=== PATIENT | male | born 1970 | race African-American/Black ===

== ENCOUNTER 2018-06-19 10:58 | Inpatient (IN) | payer MEDICARE ==
[2018-06-19 13:28] VITALS: BMI 26.2
--- NOTE | 2018-06-19 13:37 | HP ---
COWS - Scale Resting Pulse: 2= VT 101-120 Sweatin= No chills or Flushing Restless Observation: 0= Sits Still Pupil Size: 1= Pupils >than Normal Bone or Joint Aches: 0= None Runny Nose/ Eye Tearin= Constantly Teary/Runny GI Upset > 30mins: 1= Stomach Cramp Tremor Observation: 0= None Yawning Observation: 0= None Anxiety or Irritability: 2=Irritable/Anxious Goose Flesh Skin: 0=Smooth Skin COWS Score: 10 CIWA Score - Admission Criteria OASAS Guidelines: Admission for Medically Managed Detox: Requires at least one of the followin. CIWA greater than 12 2. Seizures within the past 24 hours 3. Delirium tremens within the past 24 hours 4. Hallucinations within the past 24 hours 5. Acute intervention needed for co occurring medical disorder 6. Acute intervention needed for co occurring psychiatric disorder 7. Severe withdrawal that cannot be handled at a lower level of care (continued vomiting, continued diarrhea, abnormal vital signs) requiring intravenous medication and/or fluids 8. Admission ROS [facility] - HPI Allergies/Adverse Reactions: Allergies Allergy/AdvReac Type Severity Reaction Status Date / Time No Known Allergies Allergy Verified 10/23/15 20:37 History of Present Illness: pt here requesting detox from heroin use , reports 3 bundles / day , first age of use 3 1/2 years ago , denies IVDU , latet use this morning 3 bags , denies OD . PMHX : DM II since 1 year ago , w/ hyperglycemia, latest hospitalization 1 week ago [facility] reports FS > 600, went to [facility] Friday PSHX : denies Psych :denies , denies current SI / HI meds - see list Exam Limitations: Clinical Condition - Ebola screening Have you traveled outside of the country in the last 21 days: No Have you had contact with anyone from an Ebola affected area: No - Review of Systems Constitutional: See HPI EENT: reports: See HPI Respiratory: reports: No Symptoms reported Cardiac: reports: No Symptoms Reported GI: reports: See HPI : reports: No Symptoms Reported Musculoskeletal: reports: Muscle Pain Integumentary: reports: No Symptoms Reported Neuro: reports: No Symptoms reported Endocrine: reports: See HPI Psychiatric: reports: Orientated x3 Patient History - Patient Medical History Hx Anemia: No Hx Asthma: No Hx Chronic Obstructive Pulmonary Disease (COPD): No Hx Cancer: No Hx Cardiac Disorders: No Hx Congestive Heart Failure: No Hx Hypertension: No Hx Hypercholesterolemia: No Hx Pacemaker: No HX Cerebrovascular Accident: No Hx Seizures: No Hx Dementia: No Hx Diabetes: No Hx Gastrointestinal Disorders: No Hx Liver Disease: No Hx Genitourinary Disorders: No Hx Sexually Transmitted Disorders: No Hx Renal Disease (ESRD): No Hx Thyroid Disease: No Hx Human Immunodeficiency Virus (HIV): No Hx Hepatitis C: No Hx Depression: No Hx Suicide Attempt: No Hx Bipolar Disorder: No Hx Schizophrenia: No - Patient Surgical History Past Surgical History: No Hx Neurologic Surgery: No Hx Cataract Extraction: No Hx Cardiac Surgery: No Hx Lung Surgery: No Hx Breast Surgery: No Hx Breast Biopsy: No Hx Abdominal Surgery: No Hx Appendectomy: No Hx Cholecystectomy: No Hx Genitourinary Surgery: No Hx Section: No Hx Orthopedic Surgery: No Anesthesia Reaction: No - PPD History Date: 10/25/15 - Smoking Cessation Smoking history: Current every day smoker Have you smoked in the past 12 months: Yes Aproximately how many cigarettes per day: 20 Cigars Per Day: 0 Hx Chewing Tobacco Use: No Initiated information on smoking cessation: No - Substances abused Heroin Other (specify): sniff Frequency: Daily Amount used: 2 BUNDLES Age of first use: 44 Date of last use: 06/19/18 Family Disease History - Family Disease History Family Disease History: Diabetes: Father (ESRD ), Heart Disease: Mother , Other: Father Admission Physical Exam BHS - Vital Signs Vital Signs: Vital Signs - 24 hr 06/19/18 06/19/18 13:04 13:26 Temperature 97.5 F L 97.5 F L Pulse Rate 104 H 104 H Respiratory 18 18 Rate Blood Pressure 133/77 133/77 - Physical General Appearance: Yes: Mild Distress HEENTM: Yes: EOMI, Hearing grossly Normal, Normocephalic, Normal Voice Respiratory: Yes: Chest Non-Tender, Lungs Clear, Normal Breath Sounds Neck: Yes: No masses,lesions,Nodules, Trachea in good position Cardiology: Yes: Regular Rhythm, Regular Rate, S1, S2, Tachycardia Abdominal: Yes: Non Tender, Soft Back: Yes: Normal Inspection Musculoskeletal: Yes: full range of Motion Extremities: Yes: Non-Tender Neurological: Yes: Fully Oriented, Alert, Motor Strength 5/5 Integumentary: Yes: Dry, Warm - Diagnostic (1) Nicotine dependence Current Visit: Yes Status: Chronic Qualifiers: Nicotine product type: cigarettes Substance use status: uncomplicated Qualified Code(s): F17.210 - Nicotine dependence, cigarettes, uncomplicated (2) Opioid dependence with withdrawal Current Visit: Yes Status: Acute Breathalyzer - Breathalyzer Breathalyzer: 0 Urine Drug Screen - Test Device Lot number: [id number] Expiration date: 02/14/20 - Control Is test valid?: Yes - Results Drug screen NEGATIVE: No Urine drug screen results: MOP-Opiates Inpatient Rehab Admission - Rehab Decision to Admit Inpatient rehab admission?: No
[2018-06-19] MEDS ORDERED: ACETAMINOPHEN 325 MG TABLET (FP) PO PRN ×2 (13:50)
[2018-06-19] MEDS ORDERED: NICOTINE POLACRILEX 2 MG GUM BUC PRN (13:50)
[2018-06-19] MEDS ORDERED: MAGNESIUM CITRATE 300 ML BOTTLE PO PRN (13:50)
[2018-06-19] MEDS ORDERED: BISMUTH SUBSALICYLATE 262 MG/15 ML BTL PO PRN (13:50)
[2018-06-19] MEDS ORDERED: MAG HYDROX/AL HYDROX/SIMETH 30 ML UNIT-DOSE CUP PO PRN (13:50)
[2018-06-19] MEDS ORDERED: IBUPROFEN 400 MG TABLET (FP) PO PRN (13:50)
[2018-06-19] MEDS ORDERED: MAGNESIUM HYDROX 2400MG/30ML ORAL SUSPENSION 30 ML CUP PO PRN (13:50)
[2018-06-19] MEDS ORDERED: MENTHOL/PHENOL 1 EACH UD MM PRN (13:50)
[2018-06-19] MEDS ORDERED: hydrOXYzine PAMOATE 25 MG CAPSULE (FP) PO PRN (13:50)
[2018-06-19] MEDS ORDERED: MELATONIN 5 MG TABLETS PO PRN (13:50)
[2018-06-19] MEDS ORDERED: cloNIDine HCL 0.1 MG TABLET PO PRN (13:50)
[2018-06-19] MEDS: metFORMIN HCL 500 MG TABLET (FP) PO SCH (15:24)
[2018-06-19] MEDS: INSULIN SLIDING SCALE (NOVOLOG) 1 VIAL SQ SCH ×2 (15:34→22:41)
[2018-06-19 16:56] LABS: HEMATOCRIT 41.5 % (35.4-49); HEMOGLOBIN 13.1 GM/dL (11.7-16.9); MCH 28.1 pg (25.7-33.7); MCHC 31.5 g/dl (32.0-35.9); MEAN PLT VOLUME 11.7 fl (7.5-11.1); PLATELET COUNT 201 K/MM3 (134-434); RBC 4.66 M/mm3 (4.00-5.60); RDW 13.1 % (11.9-15.9); WHITE BLOOD COUNT 7.6 K/mm3 (4.0-10.0)
[2018-06-19 17:09] LABS: ALBUMIN 3.9 g/dl (3.4-5.0); ALK PHOS 159 U/L (45-117); ANION GAP 9 MMOL/L (8-16); BILIRUBIN,TOTAL 0.6 mg/dL (0.2-1); BLOOD UREA NITROGEN 20 mg/dL (7-18); CALCIUM 9.9 mg/dL (8.5-10.1); CHLORIDE 94 mmol/L (98-107); CO2 27 mmol/L (21-32); CREATININE 1.4 mg/dL (0.55-1.3); POTASSIUM 5.2 mmol/L (3.5-5.1); SGOT/AST 10 U/L (15-37); SGPT/ALT 25 U/L (13-61); SODIUM 130 mmol/L (136-145)
[2018-06-19 17:14] LABS: GLUCOSE,RANDOM 547 mg/dL (74-106)
[2018-06-19] MEDS ORDERED: Insulin (LOG) Aspart 100 UNITS/ML VIAL SQ ONE (17:45)
[2018-06-19] MEDS ORDERED: THIAMINE HCL 100 MG TABLET (FP) PO SCH (22:00)
[2018-06-19] MEDS: AMOXICILLIN 500 MG CAPSULE (FP) PO SCH (22:42)
[2018-06-19] MEDS ORDERED: METHADONE HCL 10 MG TABLET (FOR DETOX USE ONLY) PO ONE (23:00)
[2018-06-20] MEDS: metFORMIN HCL 500 MG TABLET (FP) PO SCH (07:19)
[2018-06-20] MEDS: INSULIN SLIDING SCALE (NOVOLOG) 1 VIAL SQ SCH ×3 (08:20→17:00)
[2018-06-20] MEDS ORDERED: METHADONE HCL 10 MG TABLET (FOR DETOX USE ONLY) PO ONE (10:00)
[2018-06-20] MEDS ORDERED: PRENATAL VITAMINS W/ FOLIC ACID TABLET (FP) PO SCH (10:00)
--- NOTE | 2018-06-20 11:38 | EKG ---
Test Reason : Blood Pressure : / mmHG Vent. Rate : 095 BPM Atrial Rate : 095 BPM P-R Int : 162 ms QRS Dur : 074 ms QT Int : 358 ms P-R-T Axes : 045 -06 007 degrees QTc Int : 449 ms NORMAL SINUS RHYTHM POSSIBLE LEFT ATRIAL ENLARGEMENT LEFT VENTRICULAR HYPERTROPHY CANNOT RULE OUT SEPTAL INFARCT , AGE UNDETERMINED ABNORMAL ECG NO PREVIOUS ECGS AVAILABLE Confirmed by GOLDY RUVALCABA MD ([id number]) on 06/20/2018 11:37:35 AM Referred By: Shiela ELDRIDGE Confirmed By:GOLDY RUVALCABA MD
[2018-06-20] MEDS: AMOXICILLIN 500 MG CAPSULE (FP) PO SCH (12:00)
[2018-06-20 13:34] VITALS: TEMP 98.2
--- NOTE | 2018-06-20 15:44 | PN ---
BHS COWS - Scale Resting Pulse: 1= IN 81-100 Sweatin= Chills/Flushing Restless Observation: 0= Sits Still Pupil Size: 0= Normal to Room Light Bone or Joint Aches: 0= None Runny Nose/ Eye Tearin= Runny Nose/Eyes GI Upset > 30mins: 1= Stomach Cramp Tremor Observation of Outstretched Hands: 0= None Yawning Observation: 1= 1-2x During Session Anxiety or Irritability: 2=Irritable/Anxious Goose Flesh Skin: 3=Piloerection COWS Score: 11 BHS Progress Note (SOAP) Subjective: Fatigue, Stomach Cramping, Runny Nose, Anxious. Objective: PATIENT A & O X 3, OBSERVED AMBULATING ON UNIT. IN NO ACUTE DISTRESS. 06/20/18 15:47 Vital Signs Temperature 98.2 F 06/20/18 13:33 Pulse Rate 88 06/20/18 13:33 Respiratory Rate 18 06/20/18 13:33 Blood Pressure 115/77 06/20/18 13:33 O2 Sat by Pulse Oximetry (%) Laboratory Tests 06/19/18 06/19/18 06/19/18 13:10 13:10 13:10 WBC 7.6 RBC 4.66 Hgb 13.1 Hct 41.5 MCV 89.0 MCH 28.1 MCHC 31.5 L RDW 13.1 Plt Count 201 MPV 11.7 H D Sodium 130 L Potassium 5.2 H Chloride 94 L Carbon Dioxide 27 Anion Gap 9 BUN 20 H Creatinine 1.4 H Creat Clearance w eGFR 54.56 POC Glucometer Random Glucose 547 H* Calcium 9.9 Total Bilirubin 0.6 AST 10 L ALT 25 Alkaline Phosphatase 159 H Total Protein 8.0 Albumin 3.9 RPR Titer HIV 1&2 Antibody Screen Negative HIV P24 Antigen Negative 06/19/18 06/19/18 06/19/18 13:10 13:49 15:01 WBC RBC Hgb Hct MCV MCH MCHC RDW Plt Count MPV Sodium Potassium Chloride Carbon Dioxide Anion Gap BUN Creatinine Creat Clearance w eGFR POC Glucometer 589 534 Random Glucose Calcium Total Bilirubin AST ALT Alkaline Phosphatase Total Protein Albumin RPR Titer Nonreactive HIV 1&2 Antibody Screen HIV P24 Antigen 06/19/18 06/19/18 06/19/18 16:55 19:09 21:41 WBC RBC Hgb Hct MCV MCH MCHC RDW Plt Count MPV Sodium Potassium Chloride Carbon Dioxide Anion Gap BUN Creatinine Creat Clearance w eGFR POC Glucometer 599 414 389 Random Glucose Calcium Total Bilirubin AST ALT Alkaline Phosphatase Total Protein Albumin RPR Titer HIV 1&2 Antibody Screen HIV P24 Antigen 06/20/18 06/20/18 06:57 10:47 WBC RBC Hgb Hct MCV MCH MCHC RDW Plt Count MPV Sodium Potassium Chloride Carbon Dioxide Anion Gap BUN Creatinine Creat Clearance w eGFR POC Glucometer 372 337 Random Glucose Calcium Total Bilirubin AST ALT Alkaline Phosphatase Total Protein Albumin RPR Titer HIV 1&2 Antibody Screen HIV P24 Antigen LABS NOTED. Assessment: 06/20/18 15:47 WITHDRAWAL SYMPTOMS. HYPERKALEMIA. ELEAVTED ALKALINE PHOSPHATASE LEVEL. 06/20/18 15:50 Plan: CONTINUE DETOX. INCREASE DAILY PO FLUID INTAKE. REPEAT K LEVEL TOMORROW AM FOR ELEVATED ADMISSION LEVEL. D/C IBUPROFEN AND MAGNESIUM-CONTAINING MEDS. FOR ABNORMAL ADMISSION RENAL LAB VALUES.
[2018-06-20 18:06] VITALS: BP 127/79; PULSE 101
--- NOTE | 2018-06-20 19:54 | DS ---
[facility] Detox Discharge Summary Admission Date: 06/19/18 Discharge Date: 06/20/18 - History Present History: Opioid Dependence Pertinent Past History: DM - Physical Exam Results Vital Signs: Vital Signs Temperature 98.2 F 06/20/18 13:33 Pulse Rate 101 H 06/20/18 18:05 Respiratory Rate 16 06/20/18 18:05 Blood Pressure 127/79 06/20/18 18:05 O2 Sat by Pulse Oximetry (%) Pertinent Admission Physical Exam Findings: Withdrawal sx Laboratory Last Values WBC 7.6 K/mm3 (4.0-10.0) 06/19/18 13:10 RBC 4.66 M/mm3 (4.00-5.60) 06/19/18 13:10 Hgb 13.1 GM/dL (11.7-16.9) 06/19/18 13:10 Hct 41.5 % (35.4-49) 06/19/18 13:10 MCV 89.0 fl (80-96) 06/19/18 13:10 MCH 28.1 pg (25.7-33.7) 06/19/18 13:10 MCHC 31.5 g/dl (32.0-35.9) L 06/19/18 13:10 RDW 13.1 % (11.9-15.9) 06/19/18 13:10 Plt Count 201 K/MM3 (134-434) 06/19/18 13:10 MPV 11.7 fl (7.5-11.1) H D 06/19/18 13:10 Sodium 130 mmol/L (136-145) L 06/19/18 13:10 Potassium 5.2 mmol/L (3.5-5.1) H 06/19/18 13:10 Chloride 94 mmol/L (98-107) L 06/19/18 13:10 Carbon Dioxide 27 mmol/L (21-32) 06/19/18 13:10 Anion Gap 9 MMOL/L (8-16) 06/19/18 13:10 BUN 20 mg/dL (7-18) H 06/19/18 13:10 Creatinine 1.4 mg/dL (0.55-1.3) H 06/19/18 13:10 Creat Clearance w eGFR 54.56 (>60) 06/19/18 13:10 POC Glucometer 249 UNITS (80-120) 06/20/18 16:28 Random Glucose 547 mg/dL (74-106) H* 06/19/18 13:10 Calcium 9.9 mg/dL (8.5-10.1) 06/19/18 13:10 Total Bilirubin 0.6 mg/dL (0.2-1) 06/19/18 13:10 AST 10 U/L (15-37) L 06/19/18 13:10 ALT 25 U/L (13-61) 06/19/18 13:10 Alkaline Phosphatase 159 U/L (45-117) H 06/19/18 13:10 Total Protein 8.0 g/dl (6.4-8.2) 06/19/18 13:10 Albumin 3.9 g/dl (3.4-5.0) 06/19/18 13:10 RPR Titer Nonreactive (NONREACTIVE) 06/19/18 13:10 HIV 1&2 Antibody Screen Negative 06/19/18 13:10 HIV P24 Antigen Negative 06/19/18 13:10 - Medication Discharge Medications: Ambulatory Orders Metformin HCl [Glucophage] 500 mg PO DAILY 06/19/18 - Diagnosis (1) Diabetes mellitus Status: Acute Qualifiers: Diabetes mellitus type: type 2 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
[2018-06-21] MEDS ORDERED: METHADONE HCL 10 MG TABLET (FOR DETOX USE ONLY) PO ONE (10:00)
[2018-06-22] MEDS ORDERED: METHADONE HCL 10 MG TABLET (FOR DETOX USE ONLY) PO ONE (10:00)
[2018-06-23] MEDS ORDERED: METHADONE HCL 5 MG TABLET (FOR DETOX USE ONLY) PO ONE (06:00)
== END 2018-06-20 19:08 | disposition home or self-care (01) | DRG 773 ==
LOC: YASAS 10:58 → Y3N 14:15
PROVIDERS: ADMIT Surgery; ATTEND Surgery
PROC: HZ2ZZZZ Detoxification Services for Substance Abuse Treatment (ICD-10-PCS; principal; 2018-06-19)
DX: F11.23 Opioid dependence with withdrawal (principal); F17.210 Nicotine dependence, cigarettes, uncomplicated; E87.5 Hyperkalemia; E11.9 Type 2 diabetes mellitus without complications; Z79.84 Long term (current) use of oral hypoglycemic drugs
CPT/HCPCS: 36415; 80053; 82962; 85027; 86593; 87389; 93005; 93010